=== PATIENT | female | born 1945 ===

== ENCOUNTER 2024-02-01 04:39 | Day surgery (SDC) | payer OTHER ==
[2024-01-31 10:28] VITALS: BMI 26.6
[2024-02-01 10:07] VITALS: TEMP 98
[2024-02-01 10:24] VITALS: RESP 16
[2024-02-01 10:30] VITALS: BP 145/60; PULSE 58
== END 2024-02-01 11:00 | disposition home or self-care (01) ==
LOC: JASU-ENDO 04:39
PROVIDERS: ATTEND Student in an Organized Health Care Education/Training Program
PROC: 0DBN8ZX Excision of Sigmoid Colon, Via Natural or Artificial Opening Endoscopic, Diagnostic (ICD-10-PCS; 2024-02-01)
PROC: 0DBM8ZX Excision of Descending Colon, Via Natural or Artificial Opening Endoscopic, Diagnostic (ICD-10-PCS; principal; 2024-02-01 09:30)
DX: Z12.11 Encounter for screening for malignant neoplasm of colon (principal); K63.5 Polyp of colon; R19.5 Other fecal abnormalities; Z86.010 Personal history of colon polyps; I10 Essential (primary) hypertension; E11.9 Type 2 diabetes mellitus without complications; Z79.84 Long term (current) use of oral hypoglycemic drugs
CPT/HCPCS: 82962; 88305-TC